=== PATIENT | female | born 1975 | race Caucasian/White ===

== ENCOUNTER 2017-06-17 21:59 | Emergency (ER) | payer MEDICARE, OTHER ==
[~2017-06-17] VITALS: Ht 167.6 cm; Wt 69.2 kg
[~2017-06-17 21:59] MED LIST: ALBU8.5H8 IH; BUPR150T26 PO; LAMO100T89 PO; LAMO200T31 PO; LORA2TAB96 PO; METF500T4 PO; ONDA4TAB6 PO; THIO10CA2 PO; TOP100T PO; TOPI50TA24 PO; TRAZ-143 PO
[2017-06-17] MEDS ORDERED: ALBU8.5H8 INH (22:42)
[2017-06-17] MEDS ORDERED: FLUT12AE4 INH (22:42)
[2017-06-17] MEDS ORDERED: ACET-2144 PO (22:42)
[2017-06-17] MEDS ORDERED: IBUP-1985 PO (22:42)
[2017-06-17] MEDS ORDERED: BACI1PAC7 TP (22:42)
[2017-06-17] MEDS ORDERED: DIPH-423 PO (22:42)
[2017-06-17 22:56] VITALS: BP 125/78
== END 2017-06-17 22:58 | disposition home or self-care (01) ==
LOC: ER 22:00
DX: Z76.0 Encounter for issue of repeat prescription (principal); G89.29 Other chronic pain; M25.572 Pain in left ankle and joints of left foot; J45.909 Unspecified asthma, uncomplicated; K21.9 Gastro-esophageal reflux disease without esophagitis; E11.9 Type 2 diabetes mellitus without complications; F12.10 Cannabis abuse, uncomplicated; F15.10 Other stimulant abuse, uncomplicated; F17.200 Nicotine dependence, unspecified, uncomplicated; Z59.0 Homelessness; Z98.890 Other specified postprocedural states; Z88.8 Allergy status to other drugs, medicaments and biological substances; Z88.5 Allergy status to narcotic agent; Z79.899 Other long term (current) drug therapy
CPT/HCPCS: 99283

== ENCOUNTER 2017-07-31 13:31 | Emergency (ER) | payer MEDICARE, OTHER ==
[~2017-07-31] VITALS: Ht 5619.3 cm; Wt 67.3 kg
[~2017-07-31 13:31] MED LIST changes: +ALBU8.5H8 INH; +DIPH-423 PO; +FLUT12AE4 INH; +IBUP-1985 PO
[2017-07-31] MEDS ORDERED: diphenhydrAMINE 25mg capsule PO ONE (15:00)
[2017-07-31] MEDS ORDERED: LORazepam 1 MG tablet PO ONE (15:05)
[2017-07-31] MEDS: olanzapine 10mg tablet PO SCH (15:09)
[2017-07-31 15:14] LABS: BASOPHILS % (AUTO) 0.1 % (0-1); EOSINOPHILS # (AUTO) 0.2 X10'3 (0-0.9); EOSINOPHILS % (AUTO) 1.2 % (0-6); HEMATOCRIT 44.5 % (35.0-45.0); HEMOGLOBIN 14.8 g/dl (12.0-16.0); LYMPHOCYTES # (AUTO) 2.3 X10'3 (1.1-4.8); LYMPHOCYTES % (AUTO) 15.8 % (21-51); MEAN CORPUSCULAR HEMOGLOBIN 31.6 PG (27.0-31.0); MEAN CORPUSCULAR HGB CONC 33.3 % (33.0-36.5); MEAN PLATELET VOLUME 7.8 FL (7.4-10.4); MONOCYTES % (AUTO) 7.1 % (2-12); NEUTROPHILS # (AUTO) 11.1 X10'3 (1.8-7.7); NEUTROPHILS % (AUTO) 75.8 % (42-75); PLATELET COUNT 319 X10'3 (140-440); RED BLOOD COUNT 4.68 X10'6 (4.20-5.60); RED CELL DISTRIBUTION WIDTH 15.8 % (11.5-14.5); WHITE BLOOD COUNT 14.6 X10'3 (4.5-11.0)
[2017-07-31 15:28] LABS: ALANINE AMINOTRANSFERASE 33 U/L (12-78); ALBUMIN 3.6 G/DL (3.4-5.0); ALBUMIN/GLOBULIN RATIO 0.9 (1.1-1.5); ALKALINE PHOSPHATASE 105 IU/L (46-116); ANION GAP 7 (8-16); ASPARTATE AMINO TRANSFERASE 31 U/L (10-37); BILIRUBIN,TOTAL 0.4 MG/DL (0.1-1.0); BLOOD UREA NITROGEN 11 MG/DL (7-18); BUN/CREATININE RATIO 18.3 (6.6-38.0); CALCIUM 8.6 MG/DL (8.5-10.1); CHLORIDE 105 MMOL/L (99-107); ETHANOL < 0.010 GM/DL (0.0-0.010); GLUCOSE 88 MG/DL (70-104); POTASSIUM 3.6 MMOL/L (3.5-5.1); SODIUM 140 MMOL/L (135-145); TOTAL PROTEIN 7.6 G/DL (6.4-8.2); eGFR > 90 ML/MIN
[2017-07-31 16:23] LABS: URINE HCG NEGATIVE (NEG)
[2017-07-31 16:34] LABS: URINE AMPHETAMINE SCREEN NEGATIVE (Neg); URINE BARBITUATE SCREEN NEGATIVE (Neg); URINE BENZODIAZEPINES SCREEN NEGATIVE (Neg); URINE CANNABINOID SCREEN POSITIVE (Neg); URINE COCAINE SCREEN NEGATIVE (Neg); URINE METHADONE SCREEN NEGATIVE (Neg); URINE OPIATE SCREEN NEGATIVE (Neg); URINE PHENCYCLIDINE SCREEN NEGATIVE (Neg)
[2017-07-31] MEDS ORDERED: sulfamethoxazole/trimethoprim DS (800/160mg) tablet PO ONE (17:10)
[2017-07-31] MEDS ORDERED: ziprasidone IM 20mg inj **IM only IM PRN (22:35)
[2017-07-31] MEDS ORDERED: LORazepam 1 MG tablet PO PRN (22:40)
[2017-07-31] MEDS ORDERED: LORazepam 2 mg/ml vial IM PRN (22:40)
[2017-08-01] MEDS ORDERED: ziprasidone 20mg capsule PO PRN (00:50)
[2017-08-01] MEDS ORDERED: metFORMIN 500mg tablet PO SCH (08:00)
[2017-08-01] MEDS ORDERED: lamoTRIgine 100mg tablet PO SCH ×2 (08:00→20:00)
[2017-08-01] MEDS ORDERED: LAMOTRIGINE 400 MG PO SCH (08:00)
[2017-08-01] MEDS ORDERED: buPROPion SR 150mg tablet PO SCH (08:00)
[2017-08-01] MEDS ORDERED: topiramate 25mg tablet PO SCH (08:00)
[2017-08-01] MEDS ORDERED: LORazepam 1 MG tablet PO PRN (08:00)
[2017-08-01] MEDS ORDERED: albuterol 2.5 MG/3 ML nebule NEB PRN (08:05)
[2017-08-01] MEDS: olanzapine 10mg tablet PO SCH ×2 (08:49→08:57)
[2017-08-01] MEDS ORDERED: sulfamethoxazole/trimethoprim DS (800/160mg) tablet PO SCH ×2 (10:45→20:00)
[2017-08-01 18:17] VITALS: BP 102/68
[2017-08-01] MEDS ORDERED: BACDS PO (19:31)
[2017-08-01] MEDS ORDERED: thiothixene 2mg capsule PO SCH (20:00)
[2017-08-01] MEDS ORDERED: traZODone 50mg tablet PO SCH (21:00)
[2017-08-01] MEDS ORDERED: topiramate 100mg tablet PO SCH (21:00)
== END 2017-08-01 20:01 | disposition home or self-care (01) ==
LOC: ER 13:32
DX: L03.012 Cellulitis of left finger (principal); L03.011 Cellulitis of right finger; L02.512 Cutaneous abscess of left hand; L02.511 Cutaneous abscess of right hand; F31.9 Bipolar disorder, unspecified; F20.9 Schizophrenia, unspecified; J45.909 Unspecified asthma, uncomplicated; K21.9 Gastro-esophageal reflux disease without esophagitis; E11.9 Type 2 diabetes mellitus without complications; G89.29 Other chronic pain; F12.10 Cannabis abuse, uncomplicated; F15.10 Other stimulant abuse, uncomplicated; Z59.0 Homelessness; Z88.5 Allergy status to narcotic agent; Z88.8 Allergy status to other drugs, medicaments and biological substances
CPT/HCPCS: 36415; 71046; 73140; 80053; 80305; 80320; 81025; 82948; 85025; 99285; A6449; J3486; J3490; Q0163

== ENCOUNTER 2017-08-28 10:57 | Emergency (ER) | payer MEDICARE, MEDICAID ==
[~2017-08-28] VITALS: Ht 5451.6 cm; Wt 63.0 kg
[~2017-08-28 10:57] MED LIST changes: -ALBU8.5H8 INH; -DIPH-423 PO; -FLUT12AE4 INH; -IBUP-1985 PO; -ONDA4TAB6 PO
[2017-08-28] MEDS ORDERED: TETanus/Pertussis (Acell)/Diphther VAC/PF (Tdap-Adult) 0.5ml syringe IM ONE (11:30)
[2017-08-28] MEDS ORDERED: LORazepam 2 mg/ml vial IM ONE ×2 (11:30→18:25)
[2017-08-28] MEDS ORDERED: BUPIVAcaine/PF 2.5 mg/ml (0.25%) 30ml vial IJ ONE (11:45)
[2017-08-28] MEDS ORDERED: OLANZapine **IM** 10 mg inj. IM ONE (11:55)
[2017-08-28 12:48] LABS: BASOPHILS % (AUTO) 0.4 % (0-1); EOSINOPHILS # (AUTO) 0.1 X10'3 (0-0.9); EOSINOPHILS % (AUTO) 1.8 % (0-6); HEMATOCRIT 34.6 % (35.0-45.0); HEMOGLOBIN 11.8 g/dl (12.0-16.0); LYMPHOCYTES # (AUTO) 1.2 X10'3 (1.1-4.8); LYMPHOCYTES % (AUTO) 21.2 % (21-51); MEAN CORPUSCULAR VOLUME 94.3 FL (78-98); MEAN PLATELET VOLUME 8.5 FL (7.4-10.4); MONOCYTES # (AUTO) 0.4 X10'3 (0-0.9); MONOCYTES % (AUTO) 6.5 % (2-12); NEUTROPHILS # (AUTO) 3.8 X10'3 (1.8-7.7); NEUTROPHILS % (AUTO) 70.1 % (42-75); PLATELET COUNT 161 X10'3 (140-440); RED BLOOD COUNT 3.67 X10'6 (4.20-5.60); RED CELL DISTRIBUTION WIDTH 15.3 % (11.5-14.5); WHITE BLOOD COUNT 5.4 X10'3 (4.5-11.0)
[2017-08-28 13:02] LABS: ALANINE AMINOTRANSFERASE 31 U/L (12-78); ALBUMIN 3.1 G/DL (3.4-5.0); ALBUMIN/GLOBULIN RATIO 1.1 (1.1-1.5); ALKALINE PHOSPHATASE 78 IU/L (46-116); ANION GAP 9 (8-16); ASPARTATE AMINO TRANSFERASE 30 U/L (10-37); BILIRUBIN,TOTAL 0.5 MG/DL (0.1-1.0); BLOOD UREA NITROGEN 9 MG/DL (7-18); BUN/CREATININE RATIO 12.2 (6.6-38.0); CALCIUM 7.9 MG/DL (8.5-10.1); CHLORIDE 108 MMOL/L (99-107); CREATININE 0.74 MG/DL (0.40-0.90); ETHANOL < 0.010 GM/DL (0.0-0.010); GLUCOSE 113 MG/DL (70-104); POTASSIUM 3.5 MMOL/L (3.5-5.1); SODIUM 143 MMOL/L (135-145); TOTAL CARBON DIOXIDE 26.4 MMOL/L (24-32); eGFR 86 ML/MIN
[2017-08-28 13:22] LABS: URINE HCG NEGATIVE (NEG)
[2017-08-28 13:33] LABS: URINE AMPHETAMINE SCREEN NEGATIVE (Neg); URINE BARBITUATE SCREEN NEGATIVE (Neg); URINE BENZODIAZEPINES SCREEN POSITIVE (Neg); URINE CANNABINOID SCREEN POSITIVE (Neg); URINE COCAINE SCREEN NEGATIVE (Neg); URINE METHADONE SCREEN NEGATIVE (Neg); URINE OPIATE SCREEN NEGATIVE (Neg); URINE PHENCYCLIDINE SCREEN NEGATIVE (Neg)
[2017-08-28] MEDS: clindamycin 150mg capsule PO SCH ×4 (14:30→20:02)
[2017-08-28] MEDS ORDERED: diphenhydrAMINE 50 mg/ml inj IM ONE (18:25)
[2017-08-29] MEDS: clindamycin 150mg capsule PO SCH ×4 (02:00→20:38)
[2017-08-29] MEDS ORDERED: ziprasidone IM 20mg inj **IM only IM ONE (06:30)
[2017-08-29] MEDS ORDERED: OLANZapine **IM** 10 mg inj. IM PRN (10:20)
[2017-08-29] MEDS ORDERED: nicotine 14mg patch - 24hr TD ONE (17:55)
[2017-08-29] MEDS: lamoTRIgine 100mg tablet PO SCH (18:01)
[2017-08-29] MEDS: cloNIDine 0.1 mg tablet PO SCH (20:38)
[2017-08-30] MEDS: clindamycin 150mg capsule PO SCH ×2 (02:40→07:45)
[2017-08-30] MEDS ORDERED: lactobacillus rhamnosus 10,000 MMU CELLS/CAPSULE PO SCH (07:30)
[2017-08-30] MEDS: cloNIDine 0.1 mg tablet PO SCH ×2 (07:46→08:00)
[2017-08-30] MEDS: lamoTRIgine 100mg tablet PO SCH (07:46)
[2017-08-30 11:07] VITALS: BP 106/64
[2017-08-30] MEDS ORDERED: FLUT1DIS4 INH (12:21)
[2017-08-30] MEDS ORDERED: clonidine PO (12:27)
[2017-08-30] MEDS ORDERED: clindamycin PO (12:27)
[2017-09-04] MEDS ORDERED: DIPH25CA83 PO (00:10)
[2017-09-04] MEDS ORDERED: LORA2TAB96 PO (00:10)
[2017-09-04] MEDS ORDERED: CLON-529 PO (00:10)
[2017-09-04] MEDS ORDERED: LAMO100T2 PO (06:43)
== END 2017-08-30 11:23 | disposition home or self-care (01) ==
LOC: ER 10:57
DX: S01.511A Laceration without foreign body of lip, initial encounter (principal); K21.9 Gastro-esophageal reflux disease without esophagitis; E11.9 Type 2 diabetes mellitus without complications; F12.10 Cannabis abuse, uncomplicated; F15.10 Other stimulant abuse, uncomplicated; F31.9 Bipolar disorder, unspecified; Z88.8 Allergy status to other drugs, medicaments and biological substances; X58.XXXA Exposure to other specified factors, initial encounter; Y93.89 Activity, other specified; Y92.89 Other specified places as the place of occurrence of the external cause; Y99.8 Other external cause status
CPT/HCPCS: 36415; 40650; 80053; 80305; 80320; 81025; 82948; 85025; 90471; 90715; 96372; 99285; A4353; A6449; J1200; J2060; J3486; J3490; 84443

== ENCOUNTER 2017-08-29 20:40 | Inpatient (IN) | payer MEDICARE, MEDICAID ==
[~2017-08-29] VITALS: Ht 167.6 cm; Wt 46.0 kg
[2017-08-30] MEDS ORDERED: LORazepam 1 MG tablet PO ONE (12:10)
[2017-08-30] MEDS ORDERED: FLUT1DIS4 INH (12:21)
[2017-08-30] MEDS ORDERED: clindamycin PO (12:27)
[2017-08-30] MEDS ORDERED: clonidine PO (12:27)
[2017-08-30] MEDS ORDERED: nicotine 14mg patch - 24hr TD SCH (13:15)
[2017-09-04] MEDS ORDERED: LORA2TAB96 PO (00:10)
[2017-09-04] MEDS ORDERED: DIPH25CA83 PO (00:10)
[2017-09-04] MEDS ORDERED: CLON-529 PO (00:10)
[2017-09-04] MEDS ORDERED: LAMO100T2 PO (06:43)
== END 2017-08-30 14:15 | disposition home or self-care (01) | DRG 885 ==
LOC: ADULT MH 20:40
PROVIDERS: ADMIT Psychiatry & Neurology Psychiatry; ATTEND Psychiatry & Neurology Psychiatry
DX: F29 Unspecified psychosis not due to a substance or known physiological condition (principal); Z68.1 Body mass index [BMI] 19.9 or less, adult; Z88.6 Allergy status to analgesic agent; Z88.8 Allergy status to other drugs, medicaments and biological substances; Z79.899 Other long term (current) drug therapy
CPT/HCPCS: 87070

== ENCOUNTER 2017-08-30 14:22 | Emergency (ER) | payer MEDICARE, MEDICAID ==
[~2017-08-30] VITALS: Ht 182781.3 cm; Wt 63.0 kg
[~2017-08-30 14:22] MED LIST changes: +FLUT1DIS4 INH; +clindamycin PO; +clonidine PO
[2017-08-30] MEDS ORDERED: cloNIDine 0.1 mg tablet PO PRN (15:45)
[2017-08-30] MEDS ORDERED: albuterol 2.5 MG/3 ML nebule NEB PRN (15:50)
[2017-08-30] MEDS ORDERED: nicotine 14mg patch - 24hr TD SCH (15:56)
[2017-08-30] MEDS ORDERED: OLANZapine **IM** 10 mg inj. IM PRN (17:10)
[2017-08-30] MEDS ORDERED: olanzapine 10mg tablet PO PRN (17:10)
[2017-08-30] MEDS ORDERED: OLANZapine 5mg rapidly disint. tablet PO PRN (17:24)
[2017-08-30] MEDS: lactobacillus rhamnosus 10,000 MMU CELLS/CAPSULE PO SCH (17:40)
[2017-08-30] MEDS ORDERED: LORazepam 1 MG tablet PO PRN (20:00)
[2017-08-30] MEDS ORDERED: LAMOTRIGINE 200 MG PO SCH (20:00)
[2017-08-30] MEDS: clindamycin 150mg capsule PO SCH (20:00)
[2017-08-31] MEDS: clindamycin 150mg capsule PO SCH ×2 (04:19→08:38)
[2017-08-31] MEDS ORDERED: fluticasone/vilanterol 200mcg/25mcg inhaler IH SCH (08:00)
[2017-08-31] MEDS ORDERED: nicotine 7mg patch - 24hr TD SCH (08:00)
[2017-08-31] MEDS: lactobacillus rhamnosus 10,000 MMU CELLS/CAPSULE PO SCH (08:39)
[2017-08-31] MEDS ORDERED: lamoTRIgine 100mg tablet PO SCH (09:00)
[2017-08-31 13:01] VITALS: BP 110/70
[2017-08-31] MEDS ORDERED: nicotine 14mg patch - 24hr TD SCH (15:00)
[2017-08-31] MEDS ORDERED: lactobacillus rhamnosus 10,000 MMU CELLS/CAPSULE PO SCH (17:30)
[2017-09-04] MEDS ORDERED: CLON-529 PO (00:10)
[2017-09-04] MEDS ORDERED: LORA2TAB96 PO (00:10)
[2017-09-04] MEDS ORDERED: DIPH25CA83 PO (00:10)
[2017-09-04] MEDS ORDERED: LAMO100T2 PO (06:43)
== END 2017-08-31 13:04 ==
LOC: ER 14:23
DX: F31.9 Bipolar disorder, unspecified (principal); K21.9 Gastro-esophageal reflux disease without esophagitis; E11.9 Type 2 diabetes mellitus without complications; F12.10 Cannabis abuse, uncomplicated; F15.10 Other stimulant abuse, uncomplicated; Z88.8 Allergy status to other drugs, medicaments and biological substances
CPT/HCPCS: 94640; 94760; 96372; 99285

== ENCOUNTER 2019-02-26 18:30 | Emergency (ER) | payer MEDICARE, MEDICAID ==
[~2019-02-26] VITALS: Ht 167.6 cm; Wt 63.6 kg
[~2019-02-26 18:30] MED LIST changes: -BUPR150T26 PO; +CLON-529 PO; +DIPH25CA83 PO; +LAMO100T2 PO; -LAMO100T89 PO; -LAMO200T31 PO; -METF500T4 PO; -THIO10CA2 PO; -TOP100T PO; -TOPI50TA24 PO; -TRAZ-143 PO; -clindamycin PO; -clonidine PO
[2019-02-26 18:31] VITALS: BP 90/64
== END 2019-02-26 19:15 | disposition home or self-care (01) ==
LOC: ER 18:31
DX: S92.512A Displaced fracture of proximal phalanx of left lesser toe(s), initial encounter for closed fracture (principal); J45.909 Unspecified asthma, uncomplicated; K21.9 Gastro-esophageal reflux disease without esophagitis; E11.9 Type 2 diabetes mellitus without complications; G89.29 Other chronic pain; F12.90 Cannabis use, unspecified, uncomplicated; F31.9 Bipolar disorder, unspecified; F15.90 Other stimulant use, unspecified, uncomplicated; Z86.14 Personal history of Methicillin resistant Staphylococcus aureus infection; Z98.890 Other specified postprocedural states; Z59.0 Homelessness; Z56.0 Unemployment, unspecified; Z88.6 Allergy status to analgesic agent; Z88.8 Allergy status to other drugs, medicaments and biological substances; Z79.899 Other long term (current) drug therapy; W22.09XA Striking against other stationary object, initial encounter; Y93.01 Activity, walking, marching and hiking; Y92.89 Other specified places as the place of occurrence of the external cause; Y99.8 Other external cause status
CPT/HCPCS: 73660; 99283

== ENCOUNTER 2019-05-19 19:22 | Emergency (ER) | payer MEDICARE, MEDICAID ==
[~2019-05-19] VITALS: Ht 167.6 cm; Wt 64.0 kg
[2019-05-19 19:29] VITALS: BP 109/62
[2019-05-19] MEDS ORDERED: IBUP-1984 PO (21:46)
== END 2019-05-19 22:06 | disposition home or self-care (01) ==
LOC: ER 19:22
DX: M79.644 Pain in right finger(s) (principal); J45.909 Unspecified asthma, uncomplicated; K21.9 Gastro-esophageal reflux disease without esophagitis; E11.9 Type 2 diabetes mellitus without complications; G89.29 Other chronic pain; F31.9 Bipolar disorder, unspecified; F12.90 Cannabis use, unspecified, uncomplicated; F15.90 Other stimulant use, unspecified, uncomplicated; Z98.890 Other specified postprocedural states; Z86.69 Personal history of other diseases of the nervous system and sense organs; Z86.14 Personal history of Methicillin resistant Staphylococcus aureus infection; Z59.0 Homelessness; Z56.0 Unemployment, unspecified; Z88.5 Allergy status to narcotic agent; Z88.8 Allergy status to other drugs, medicaments and biological substances; Z79.899 Other long term (current) drug therapy
CPT/HCPCS: 73130; 99283

== ENCOUNTER 2020-02-24 15:17 | Emergency (ER) | payer MEDICARE, MEDICAID ==
[~2020-02-24] VITALS: Ht 167.6 cm; Wt 61.0 kg
--- NOTE | 2020-02-24 16:18 | NUR ---
having touble getting assesment done r/t pt keeps falling asleep when asking questions breathing even and unlabored and the few questions i could get her to answer she would answer apporperly
[2020-02-24 17:06] LABS: BASOPHILS # (AUTO) 0.1 X10'3 (0-0.2); BASOPHILS % (AUTO) 1.4 % (0-1); EOSINOPHILS # (AUTO) 0.2 X10'3 (0-0.9); EOSINOPHILS % (AUTO) 2.3 % (0-6); HEMATOCRIT 38.4 % (35.0-45.0); HEMOGLOBIN 12.8 g/dl (12.0-16.0); LYMPHOCYTES % (AUTO) 24.3 % (21-51); MEAN CORPUSCULAR HEMOGLOBIN 33.1 PG (27.0-31.0); MEAN CORPUSCULAR HGB CONC 33.4 g/dL (33.0-36.5); MEAN PLATELET VOLUME 8.3 FL (7.4-10.4); MONOCYTES # (AUTO) 0.5 X10'3 (0-0.9); MONOCYTES % (AUTO) 6.4 % (2-12); NEUTROPHILS # (AUTO) 5.4 X10'3 (1.8-7.7); NEUTROPHILS % (AUTO) 65.6 % (42-75); PLATELET COUNT 155 X10'3 (140-440); RED BLOOD COUNT 3.88 X10'6 (4.20-5.60); RED CELL DISTRIBUTION WIDTH 15.3 % (11.5-14.5); WHITE BLOOD COUNT 8.2 X10'3 (4.5-11.0)
[2020-02-24 17:16] LABS: ALANINE AMINOTRANSFERASE 32 U/L (12-78); ALBUMIN 2.9 G/DL (3.4-5.0); ALKALINE PHOSPHATASE 75 IU/L (46-116); ANION GAP 3 (8-16); ASPARTATE AMINO TRANSFERASE 31 U/L (10-37); BILIRUBIN,TOTAL 0.3 MG/DL (0.1-1.0); BLOOD UREA NITROGEN 10 MG/DL (7-18); BUN/CREATININE RATIO 16.7 (6.6-38.0); CHLORIDE 104 MMOL/L (99-107); GLUCOSE 98 MG/DL (70-104); POTASSIUM 3.6 MMOL/L (3.5-5.1); SODIUM 137 MMOL/L (135-145); TOTAL CARBON DIOXIDE 29.7 MMOL/L (24-32); TOTAL PROTEIN 5.8 G/DL (6.4-8.2); eGFR > 90 ML/MIN
[2020-02-24 17:17] LABS: ETHANOL < 0.010 GM/DL (0.0-0.010)
[2020-02-24 17:45] LABS: CLARITY,URINE SLIGHTLY CLOUDY (Clear); COLOR,URINE YELLOW (Yellow); GLUCOSE, URINE NEGATIVE (Neg); KETONES,URINE NEGATIVE (Neg); LEUKOCYTE ESTERASE ,URINE MODERATE (Neg); NITRITES, URINE NEGATIVE (Neg); OCCULT BLOOD,URINE NEGATIVE (Neg); PROTEIN,URINE NEGATIVE (Neg); UROBILINOGEN,URINE 0.2 E.U/dL (0.2-1.0)
[2020-02-24 17:46] LABS: UA COLLECTION TYPE VOIDED; URINE HCG NEGATIVE (NEG)
[2020-02-24 17:51] LABS: MUCUS STRANDS FEW /LPF (Neg); SQUAMOUS EPITHELIAL CELL,UR MANY /LPF (FEW)
[2020-02-24 17:56] LABS: CAL OXALATE CRYSTALS 1+ /HPF (NEGATIVE); URINE AMPHETAMINE SCREEN NEGATIVE (Neg); URINE BARBITUATE SCREEN NEGATIVE (Neg); URINE BENZODIAZEPINES SCREEN NEGATIVE (Neg); URINE CANNABINOID SCREEN POSITIVE (Neg); URINE COCAINE SCREEN NEGATIVE (Neg); URINE METHADONE SCREEN NEGATIVE (Neg); URINE OPIATE SCREEN NEGATIVE (Neg); URINE PHENCYCLIDINE SCREEN NEGATIVE (Neg)
[2020-02-24 17:57] LABS: TRICHOMONAS,URINE FEW /HPF (NEGATIVE)
[2020-02-24 17:59] LABS: BACTERIA,URINE FEW /HPF (Neg); RBC,URINE 0-2 /HPF (0-2)
[2020-02-24] MEDS ORDERED: normal saline 1000ML IV soln IVB ONE (18:50)
[2020-02-24 19:07] VITALS: BP 122/86
== END 2020-02-24 20:01 | disposition home or self-care (01) ==
LOC: ER 15:18
DX: R53.83 Other fatigue (principal); R41.0 Disorientation, unspecified; J45.909 Unspecified asthma, uncomplicated; K21.9 Gastro-esophageal reflux disease without esophagitis; E11.9 Type 2 diabetes mellitus without complications; G89.29 Other chronic pain; F12.90 Cannabis use, unspecified, uncomplicated; F15.90 Other stimulant use, unspecified, uncomplicated; Z59.0 Homelessness; Z56.0 Unemployment, unspecified; Z98.890 Other specified postprocedural states; Z86.14 Personal history of Methicillin resistant Staphylococcus aureus infection; Z79.899 Other long term (current) drug therapy; Z88.5 Allergy status to narcotic agent
CPT/HCPCS: 36415; 70450; 71045; 80053; 80305; 80320; 81001; 81025; 85025; 99285; J7030

== ENCOUNTER 2024-11-16 21:34 | Emergency (ER) | payer MEDICARE, SELFPAY ==
[~2024-11-16] VITALS: Ht 167.6 cm; Wt 72.8 kg
[~2024-11-16 21:34] MED LIST changes: +ALBU8.5H17 IH; -ALBU8.5H8 IH
[2024-11-16 21:36] VITALS: BP 114/71; PULSE 75; RESP 14; O2SAT 96
[2024-11-16] MEDS: LIDOcaine 1% 30ml preserv. free vial IJ STA (22:31)
--- NOTE | 2024-11-16 23:09 | Physician Documentation ---
History of Present Illness ~ Chief Complaint: Laceration Stated Complaint: W/C CUT FINGER Time Seen by MD: 21:47 Primary Medical Doctor: REINA STATON Patient is seen today with complaints of laceration to the dorsum of her left index finger at the level of the middle phalanx. 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 Patient denies any numbness or tingling of her finger. She has no other concern or complaint at this time. Tetanus Within 5 Years: No Medication Reconciliation Allergies: Coded Allergies: Haloperidol Lactate (Verified Allergy, Unknown, 11/16/24) Opioids - Morphine Analogues (Verified Allergy, Unknown, 11/16/24) haloperidol (Verified Allergy, Unknown, 11/16/24) quetiapine (Verified Allergy, Unknown, 11/16/24) risperidone (Verified Allergy, Unknown, 11/16/24) Scheduled Clonidine Hcl* (Catapres*), 0.1 MG PO BID, (Reported) Diphenhydramine Hcl (Benadryl), 2 CAP PO HS, (Reported) Fluticasone/Salmeterol (Advair 250-50 Diskus), 1 PUFFS INH DAILY, (Reported) Lamotrigine* (Lamictal*), 2 TAB PO Q12H, (Reported) Lorazepam (Ativan), 1 TAB PO Q12H PRN, (Reported) Scheduled PRN Albuterol Sulfate (Proair Hfa), 2 PUFFS IH Q4H PRN for SOB or wheezing, (Reported) Past Medical History Past Medical History: Seizures, Asthma, GERD, Pancreatitis, Diabetes, Chronic Pain, MRSA Abscess, Bipolar, Psychosis Past Surgical History: , other Patient History: Patient reports no known family medical history. Other Past Family History: No relevant family history Alcohol Use: Alcoholic Drug Use: marijuana, methamphetamine Lives with: S/O Lives In: Homeless Occupation: unemployed Review of Systems Constitutional: Denies: chills, fever, weakness Eyes: Denies: pain, blurred vision ENT: Denies: ear pain, nose pain, throat pain, mouth pain Respiratory: Denies: cough, shortness of breath Cardiovascular: Denies: chest pain, palpitations Gastrointestinal: Denies: abdominal pain, nausea, vomiting Genitourinary: Denies: burning, dysuria Female Genitalia: Denies: vaginal discharge, pelvic pain Neurological: Denies: headache, dizziness Musculoskeletal: Denies: pain, swelling Integumentary: Denies: rash, lesions Allergic/Immunologic: Denies: hives, itching Hematologic/Lymphatic: Denies: no symptoms reported Psychiatric: Denies: depression, anxiety Physical Exam Vital Signs: Temperature: 98.1, Source: Oral, Heart Rate: 75, Respiratory Rate: 14, BP: 114/71, Pulse Oximetry: 96, Weight: 72.750 Physical Exam General: Awake and Alert, no acute distress. HEENT: Conjunctiva pink, Sclera clear, Mucus Membranes moist. Neck: Supple without masses and tenderness. Resp: Unlabored. Lungs clear to auscultation bilaterally. Heart: Regular Rate and rhythm, normal S1 and S2 without murmur, rub or gallop. Musculoskeletal: Patient on exam does have 2 cm laceration of the dorsum of her left index finger at the level of the middle phalanx. I do not appreciate any tendon involvement. Patient has full active extension and flexion of her digits of the left hand and right hand. Patient is neurovascularly intact distally. Motor function is intact distally. Extremities: No cyanosis,clubbing or edema. Skin: Warm and Dry. Procedures Laceration/Wound Repair Laceration : Procedure Note Procedure note: 3 cc of 1% lidocaine without epinephrine was used to achieve local anesthesia of 2 cm laceration to the dorsum of her left index finger at the level of the middle phalanx. Patient tolerated well. Wound was irrigated copious the and sterile procedure use and cleansed with chlorhexidine. One simple suture and Three horizontal mattress sutures were used to achieve closure. Nonadherent dressing and bandage bulky bandage applied over repair site. Progress Results/Orders Results/Orders Completed Orders - IDALIA HANKS Lidocaine 1% 30ml Vial (Xylocaine 1% Via (11/16/24 22:31) Lidocaine 1% W/Epi 1:100,000 (Xylocaine (11/16/24 23:16) Vital Signs 11/16/24 21:36 Temp 98.1 Pulse 75 Resp 14 B/P (MAP) 114/71 Pulse Ox 96 Medical Decision Making Findings Patient is seen today with complaints of laceration to the dorsum of her left index finger at the level of the middle phalanx. 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 Patient denies any numbness or tingling of her finger. She has no other concern or complaint at this time. Laceration was well approximated with nonabsorbable sutures that will need to be removed in seven days. Patient voiced understanding. Sutures will need to be removed in seven days. Patient will follow up with primary care in 2-5 days if no better as as needed sooner. Return to ED with any worsening, concerning or changing symptoms. Take Tylenol ibuprofen as needed for symptomatic relief. Departure Disposition: HOME / SELF CARE / HOMELESS Impression: Primary Impression: Laceration Condition: Improved Discharge Instructions: Laceration Care, Adult, [id number] Additional Instructions: Laceration was well approximated with nonabsorbable sutures that will need to be removed in seven days. Patient voiced understanding. Sutures will need to be removed in seven days. Patient will follow up with primary care in 2-5 days if no better as as needed sooner. Return to ED with any worsening, concerning or changing symptoms. Take Tylenol ibuprofen as needed for symptomatic relief. Referrals: NO PRIMARY CARE PROVIDER (PCP) Signature Scribe Signature: No scribe Attestation: No scribe IDALIA HANKS November 16, 2024 23:09
[2024-11-17] MEDS: LIDOcaine 1% W/epiNEPHrine 1:100,000 20ml vial SQ STA (00:11)
[2024-11-17 00:13] VITALS: TEMP 98.1
== END 2024-11-17 00:15 | disposition home or self-care (01) ==
LOC: ER 21:35
DX: S61.211A Laceration without foreign body of left index finger without damage to nail, initial encounter (principal); E11.9 Type 2 diabetes mellitus without complications; J45.909 Unspecified asthma, uncomplicated; K21.9 Gastro-esophageal reflux disease without esophagitis; F31.9 Bipolar disorder, unspecified; F12.90 Cannabis use, unspecified, uncomplicated; F15.90 Other stimulant use, unspecified, uncomplicated; Z88.5 Allergy status to narcotic agent; Z88.8 Allergy status to other drugs, medicaments and biological substances; X58.XXXA Exposure to other specified factors, initial encounter; Y93.89 Activity, other specified; Y92.89 Other specified places as the place of occurrence of the external cause; Y99.8 Other external cause status
CPT/HCPCS: 12001; 99282